=== PATIENT | male | born 1950 | race Caucasian/White ===

== ENCOUNTER 2019-12-20 08:44 | Emergency (ER) | payer MEDICARE, OTHER, SELFPAY ==
[2019-12-20] VITALS (9 sets, daily range): BP systolic 117–167; BP diastolic 74–94; PULSE 66–75; RESP 12–25; TEMP 36.8; O2SAT 99–100; BMI 29.5
--- NOTE | 2019-12-20 09:06 | DI.RAD.S_ITS ---
PROCEDURE: XR CHEST 1V INDICATIONS: short of breath TECHNIQUE: One view of the chest was acquired. COMPARISON: None. FINDINGS: Surgical changes and devices: None. Lungs and pleura: Lungs are clear. No pleural effusions or pneumothorax. Mediastinum: Mediastinal contours appear normal. Heart size is normal. Bones and chest wall: No suspicious bony lesions. Overlying soft tissues appear unremarkable. IMPRESSION: No acute cardiopulmonary process is evident. Dictated by: Faustino Barahona M.D. on 12/20/2019 at 8:27 Approved by: Faustino Barahona M.D. on 12/20/2019 at 8:28
[2019-12-20 09:12] LABS: Add Manual Diff / Slide Review NO; Basophils Absolute Auto 100 /uL (0-100); Basophils Percent Auto 1.2 % (0-2); Eosinophils Absolute Auto 100 /uL (0-450); Eosinophils Percent Auto 1.4 % (2-4); Hematocrit 43.2 % (41-53); Hemoglobin 14.8 g/dL (13.5-17.5); Lymphocytes Absolute Auto 1400 /uL (1100-4500); Lymphocytes Percent Auto 20.2 % (25-40); Mean Corpuscular HGB Conc 34.4 % (30-36); Mean Corpuscular Volume 93.2 fL (80-100); Monocytes Absolute Auto 900 /uL (0-900); Monocytes Percent Auto 12.6 % (3-14); Neutrophils Absolute Auto 4400 /uL (1500-7000); Neutrophils Percent Auto 64.6 % (50-75); Platelet Count 300 X10^3/uL (150-400); Red Blood Cell Count 4.63 X10^6/uL (4.5-5.9); Red Cell Distribution Width 13.7 % (11.6-14.8); White Blood Cell Count 6.8 X10^3/uL (4.5-11.0)
[2019-12-20 09:14] LABS: INR 1.1 (0.9-1.3); Prothrombin Time 12.4 SECONDS (10.1-12.7)
--- NOTE | 2019-12-20 09:16 | ED_ITS ---
HPI - Arrhythmia/Palpitations General Stated Complaint: Walk-In Clinic sent over SOB Time Seen by Provider: 12/20/19 09:06 Source: patient Mode of arrival: Ambulatory Limitations: no limitations History of Present Illness HPI narrative: Patient is a 69-year-old male with history of AFib and ablation presenting with sore throat and shortness of breath along with palpitations. He said about 5 days ago he was not given a dose of colchicine for some gout, and the following day he had palpitations. He said he has had palpitations but they only last for about 10 hours this has been ongoing for number of days. He feels like now he also has a sore throat and feels short of breath when he sits down. He says he actually it easier to breathe when walking. He denies any orthopnea any is no lower extremity edema. No prior history of congestive heart failure. He was initially seen at the walk-in clinic for a gout in his left toe however due to his sore throat and shortness of breath and heart palpitations sent to the ED for further evaluation MD complaint: skipped beats Onset (ago): day(s) Related Data Home Medications Medication Instructions Recorded Confirmed hydrochlorothiazide PO 12/15/19 12/20/19 metoprolol tartrate 100 mg tablet 100 mg PO DAILY 12/15/19 12/20/19 Previous Rx's Medication Instructions Recorded colchicine 0.6 mg tablet 0.6 mg PO BID #3 tab 12/15/19 indomethacin 50 mg PO TID PRN #30 cap 12/20/19 metoprolol tartrate 25 mg PO DAILY PRN #10 tab 12/20/19 Allergies Allergy/AdvReac Type Severity Reaction Status Date / Time No Known Drug Allergies Allergy Verified 12/20/19 08:21 Review of Systems Review of Systems ROS Unobtainable: All systems reviewed & are unremarkable except as noted in HPI and below Constitutional Constitutional: Denies chills, Denies fever(s), Denies lethargy and Denies weakness ENT Ears, Nose, Mouth, and Throat: Denies vertigo and Denies dizziness Cardiovascular Cardiovascular: Reports as per HPI and Denies syncope Respiratory Respiratory: Reports as per HPI Gastrointestinal Gastrointestinal: Denies abdominal pain, Denies change in bowel habits, Denies diarrhea, Denies nausea and Denies vomiting Integumentary/Breasts Skin/Breast: Denies pruritus, Denies erythema, Denies rash and Denies wounds Neurologic Neurologic: Denies vertigo, Denies dizziness, Denies syncope and Denies weakness Patient History Medical History (Updated 12/20/19 @ 12:55 by Valerie Salinas DO) Atrial fibrillation (Acute) Gout (Acute) Surgical History (Updated 12/20/19 @ 12:55 by Valerie Salinas DO) S/P ablation of atrial fibrillation (Acute) Social History Smoking Status: Former smoker Smoking Status: Former smoker alcohol intake frequency: 0-2 drinks per day Substance Use Type: does not use Exam Initial Vital Signs Initial Vital Signs: Vital Signs Temperature 98.2 F 12/20/19 08:45 Pulse Rate 75 12/20/19 08:45 Respiratory Rate 20 12/20/19 08:45 Blood Pressure 167/94 H 12/20/19 08:45 Pulse Oximetry 100 12/20/19 08:45 GENERAL: Well-appearing, well-nourished and in no acute distress. HEENT: Head atraumatic,EOMI, pupils reactive, face symmetric, moist mucous membranes PHARYNX: No erythema, no tonsillar exudate, no cervical lymphadenopathy CARDIOVASCULAR: Regular rate and rhythm without murmurs, rubs or gallops. RESPIRATORY: Breath sounds equal bilaterally, no wheezes rales or rhonchi. ABDOMEN: Soft, nontender. Normoactive bowel sounds all 4 quadrants. No guarding or rebound. EXTREMITIES: Normal range of motion, no clubbing or edema. Neurovascularly intact NEUROLOGICAL: Alert and oriented x4.Normal gait and speech. Cranial nerves II through XII grossly intact. SKIN: Warm, dry, no laceration, no petechiae, no rashes or lesions. Left great toe mtp erythematous, tender to touch, no streaking Course Orders Ordered: ED Orders 12/20/19 08:52 EKG-12 Lead Routine 12/20/19 09:00 Complete Blood Count AUTO DIFF Stat Comprehensive Metabolic Panel Stat NT-proBNP (BNP-Adult 18+) Stat Partial Thromboplastin Time Stat Prothrombin Time INR Stat Troponin & CK Cardiac Panel Stat 12/20/19 09:06 XR chest 1V Stat Discontinued Medications Metoprolol Tartrate (Lopressor) 5 mg IV NOW ONE Stop: 12/20/19 09:57 Last Admin: 07/12/20 09:59 Dose: 5 mg Documented by: TRENA Metoprolol Tartrate (Lopressor) 25 mg PO NOW ONE Stop: 12/20/19 10:57 Last Admin: 12/20/19 11:14 Dose: 25 mg Documented by: DANDY Vital Signs Vital signs: Vital Signs - 8 hr 12/20/19 08:45 12/20/19 09:00 12/20/19 09:05 Temperature 98.2 F Pulse Rate 75 73 72 Respiratory Rate 20 16 14 Blood Pressure 167/94 H 167/94 H Pulse Oximetry 100 100 100 12/20/19 09:30 12/20/19 09:40 12/20/19 10:00 Temperature Pulse Rate 68 73 68 Respiratory Rate 14 25 H 15 Blood Pressure 149/78 H 137/74 Pulse Oximetry 100 100 100 12/20/19 10:30 12/20/19 11:00 12/20/19 11:45 Temperature Pulse Rate 66 66 74 Respiratory Rate 13 12 24 Blood Pressure 137/79 117/78 117/76 Pulse Oximetry 99 100 99 MDM - Arrhythmia/Palpitations Lab Data Attestation: I reviewed the patient's lab results. Result diagrams: 12/20/19 09:00 12/20/19 09:00 Labs: Lab Results 12/20/19 12/20/19 12/20/19 Range/Units 09:00 09:00 09:00 WBC 6.8 (4.5-11.0) X10^3/uL RBC 4.63 (4.5-5.9) X10^6/uL Hgb 14.8 (13.5-17.5) g/dL Hct 43.2 (41-53) % MCV 93.2 (80-100) fL MCH 32.0 (26-34) PG MCHC 34.4 (30-36) % RDW 13.7 (11.6-14.8) % Plt Count 300 (150-400) X10^3/uL Neut % (Auto) 64.6 (50-75) % Lymph % (Auto) 20.2 L (25-40) % [place] % (Auto) 12.6 (3-14) % Eos % (Auto) 1.4 L (2-4) % Baso % (Auto) 1.2 (0-2) % Neut # (Auto) 4400 (3450-6731) /uL Lymph # (Auto) 1400 (7668-2050) /uL [place] # (Auto) 900 (0-900) /uL Eos # (Auto) 100 (0-450) /uL Baso # (Auto) 100 (0-100) /uL PT 12.4 (10.1-12.7) SECONDS INR 1.1 (0.9-1.3) APTT 33 (26.4-36.2) SECONDS Sodium 136 L (137-145) mmol/L Potassium 3.5 (3.4-5.1) mmol/L Chloride 100 (98-107) mmol/L Carbon Dioxide 28 (22-32) mmol/L BUN 12 (9-20) mg/dL Creatinine 0.80 (0.66-1.25) mg/dL Estimated GFR > 60.0 (>60) mL/min BUN/Creatinine Ratio 15.0 (6-22) Glucose 153 H (80-110) mg/dL Calcium 9.2 (8.4-10.2) mg/dL Total Bilirubin 0.9 (0.2-1.3) mg/dL AST 33 (17-59) IU/L ALT 23 (<50) IU/L Alkaline Phosphatase 78 (38-126) U/L Total Creatine Kinase 73 (55-170) U/L CK-MB (CK-2) TNP CK-MB (CK-2) Rel Index TNP Troponin I < 0.012 (0.01-0.034) ng/mL NT-Pro-B Natriuret Pep 317 H (<125) pg/mL Total Protein 7.5 (6.3-8.2) g/dL Albumin 4.2 (3.5-5.0) g/dL Globulin 3.3 (1.7-4.1) g/dL Albumin/Globulin Ratio 1.3 (1.0-2.8) Imaging Data Chest x-ray: Radiologist's Impresson: PROCEDURE: XR CHEST 1V INDICATIONS: short of breath TECHNIQUE: One view of the chest was acquired. COMPARISON: None. FINDINGS: Surgical changes and devices: None. Lungs and pleura: Lungs are clear. No pleural effusions or pneumothorax. Mediastinum: Mediastinal contours appear normal. Heart size is normal. Bones and chest wall: No suspicious bony lesions. Overlying soft tissues appear unremarkable. IMPRESSION: No acute cardiopulmonary process is evident. Dictated by: Faustino Barahona M.D. on 12/20/2019 at 8:27 Approved by: Faustino Barahona M.D. on 12/20/2019 at 8:28 ECG Data Attestation: I personally reviewed and interpreted this ECG as follows: Prior ECG tracings: not available for review Interpretation: Normal sinus rhythm rate 77 p.r. interval 165 QRS 1 full 1 QTC 425 frequent PVCs noted on EKG and monitor MDM Narrative Medical decision making narrative: Patient is given a dose of Lopressor IV for his frequent PVCs and occasional bigeminy noted on the monitor. This does seem to help. However the patient got up to use the restroom and when he returned his PVCs returned to its initial frequency. He takes 100 mg of metoprolol daily. Will give him 25mg additional as needed to see if it helps. He lives in [place] part of the time in here part of the time. I strongly encouraged him to get a primary care provider locally. Patient's blood work and chest x-ray are reassuring. Patient is still concerned about his gout he said that was initially why he went to the walk-in clinic before he was referred to the emergency department. The colchicine did not help. He has previously been on allopurinol which he said did, I will give him indomethacin see if it helps his acute attack. Patient having shortness of breath and sore throat, he is afebrile but he said he did feel like he was chilled earlier in the week will do a send out COVID test. Discharge Plan Departure Patient Disposition: Home Clinical Impression: Frequent PVCs Gout Qualifiers: Gout site: toe Gout etiology: unspecified cause Chronicity: acute Laterality: left Qualified Code(s): M10.9 - Gout, unspecified Discharge Date/Time: 12/20/19 11:47 Instructions: Premature Ventricular Beats Activity Restrictions/Additional Instructions: *You have been diagnosed with premature ventricular beat *What to do: At this time here heart is skipping a beat quite frequently. This is likely the cause of your symptoms. However you have been tested for COVID-19 please see below in till your test comes back in 1-2 days. *Continue to take medications as directed-->SENT TO [facility] IN [place] -indomethacin 50 mg 3 times a day until symptoms improve Metoprolol 25mg -may take 1 tablet in addition to your current medication if you are having symptoms. If you are not having symptoms do not take this medication. If you continue to have symptoms after taking this medication please return to the emergency department *Follow up with your primary care provider in 2-3 days *Return to ER if you should have persistent palpitations dizziness lightheadedness short of breath fever or any new, worsening or concerning symptoms CDC Guidelines for home isolation: - Stay away from others - Limit contact with pets and animals: If you must care for a pet, wash your hands before and after interacting with them - Wear a mask if you are sick - Cover your mouth and nose with a tissue when you cough or sneeze. Dispose of tissues in a lined trash can and wash your hands immediately with soap and water for at least 20 seconds. If soap and water are not available, clean hands with alcohol-based hand revenue cycle analyst that contains at least 60% alcohol. - Clean your hands often with soap and water for at least 20 seconds - Avoid touching your eyes, nose and mouth with unwashed hands - Do not share dishes, drinking glasses, cups, eating utensils, towels, or bedding with other people in your home. After using these items, wash them thoroughly with soap and water or put in the aircraft machinist. - Clean high-touch surfaces in your isolation area (?sick room? and bathroom) every day; let a caregiver clean and disinfect high-touch surfaces in other areas of the home. Clean the area or item with soap and water or another detergent if it is dirty. Then, use a household disinfectant. Seek medical attention, but call first: - Seek medical care right away if your illness is worsening (for example, if you have difficulty breathing). - Call your doctor before going in: Before going to the doctor?s office or emergency room, call ahead and tell them your symptoms. They will tell you what to do. - If possible, put on a facemask before you enter the building. If you can?t put on a facemask, try to keep a safe distance from other people (at least 6 feet away). This will help protect the people in the office or waiting room. - Follow care instructions from your healthcare provider and local health department: Your local health authorities will give instructions on checking your symptoms and reporting information. Emergency warning signs for COVID-19: - Difficulty breathing or shortness of breath - Persistent pain or pressure in the chest - New confusion or inability to arouse - Bluish lips or face Prescriptions: New metoprolol tartrate 25 mg tablet 25 mg PO DAILY PRN (Reason: palpitations) Qty: 10 RF: 0 indomethacin 50 mg capsule 50 mg PO TID PRN (Reason: pain (scale score 4-6)) Qty: 30 RF: 0 No Action metoprolol tartrate 100 mg tablet 100 mg PO DAILY RF: 0 hydrochlorothiazide PO RF: 0 colchicine 0.6 mg tablet 0.6 mg PO BID Qty: 3 RF: 0 Referrals: [facility] [Outside]
[2019-12-20 09:17] LABS: PTT Partial Thromboplastin Tim 33 SECONDS (26.4-36.2)
[2019-12-20 09:18] LABS: Alanine Aminotransferase 23 IU/L (<50); Albumin 4.2 g/dL (3.5-5.0); Albumin Globulin Ratio 1.3 (1.0-2.8); Alkaline Phosphatase 78 U/L (38-126); Aspartate Aminotransferase 33 IU/L (17-59); Bilirubin Total 0.9 mg/dL (0.2-1.3); Blood Urea Nitrogen 12 mg/dL (9-20); Calcium 9.2 mg/dL (8.4-10.2); Carbon Dioxide 28 mmol/L (22-32); Chloride 100 mmol/L (98-107); Creatine Kinase 73 U/L (55-170); Estimated Glomerular Filt Rate > 60.0 mL/min (>60); Globulin 3.3 g/dL (1.7-4.1); Glucose 153 mg/dL (80-110); HEMOLYSIS < 15 (0-50); Potassium 3.5 mmol/L (3.4-5.1); Sodium 136 mmol/L (137-145); Total Protein 7.5 g/dL (6.3-8.2)
[2019-12-20 09:31] LABS: NT-proBNP (BNP-Adult 18+) 317 pg/mL (<125); Troponin I < 0.012 ng/mL (0.01-0.034)
[2019-12-20] MEDS: METOPROLOL TARTRATE 5 MG/5 ML INJ IV (09:59)
[2019-12-20] MEDS: METOPROLOL IR 25 MG TABLET PO (11:14)
[2019-12-23 12:12] LABS: COVID19 Sendout Not Detected (Not Detected)
== END 2019-12-20 11:47 | disposition home or self-care (01) ==
PROVIDERS: Emergency Provider Emergency Medicine
DX: I49.3 Ventricular premature depolarization (principal); M10.9 Gout, unspecified; R00.2 Palpitations; I48.91 Unspecified atrial fibrillation; R06.02 Shortness of breath; J02.9 Acute pharyngitis, unspecified; Z03.818 Encounter for observation for suspected exposure to other biological agents ruled out
CPT/HCPCS: 36415; 71045; 80053; 82550; 83880; 84484; 85025; 85610; 85730; 87635; 93005; 93010; 96374; 99284